=== PATIENT | male | born 1955 | race Hispanic/Latino ===

== ENCOUNTER 2017-12-10 06:46 | Day surgery (SDC) | payer OTHER ==
[~2017-12-10] VITALS: Ht 165.1 cm; Wt 71.7 kg
[~2017-12-10 06:46] MED LIST: ASPI81TA40 PO; CLOP75TA14 PO; METOPROLOL PO; ROSU5TAB11 PO
[2017-12-10] MEDS ORDERED: SODIUM CHLORIDE 0.9% 1000ML 1,000 ML IV ONE (06:47)
[2017-12-10 07:20] VITALS: BP 121/68
[2017-12-10] MEDS ORDERED: PROPOFOL 10 MG/ML 20ML VIAL IV ONE (09:14)
[2017-12-10 09:38] VITALS: BP 86/41
== END 2017-12-10 10:10 ==
LOC: ENDO 06:46 → DAH 06:46 → ENDO 10:10
PROVIDERS: ATTEND Internal Medicine Gastroenterology
DX: Z12.11 Encounter for screening for malignant neoplasm of colon (principal); Z79.82 Long term (current) use of aspirin; Z79.899 Other long term (current) drug therapy; I25.10 Atherosclerotic heart disease of native coronary artery without angina pectoris; I10 Essential (primary) hypertension; E78.4 Other hyperlipidemia; Z95.1 Presence of aortocoronary bypass graft; Z80.42 Family history of malignant neoplasm of prostate
CPT/HCPCS: 45378; 93005; A4606; J2704; J7030